=== PATIENT | male | born 1985 | race Caucasian/White ===

== ENCOUNTER 2017-12-05 17:04 | Emergency (ER) | payer BC ==
[~2017-12-05 17:04] MED LIST: Rabies Immune Globulin 10 ML* 150 UNIT/ML VIAL ONE
[2017-12-05 17:34] VITALS: BP 118/86
--- NOTE | 2017-12-05 19:26 | UC ---
Bite Injury/Animal HPI - HPI Summary HPI Summary: 32 yo male presents with bat exposure. He tells me that on 11/24 he and his family noticed his cat chasing a bat around the house. Unsure when it got into the house overnight. Pt does not think he was bitten - History of Current Complaint Chief Complaint: UCGeneralIllness Stated Complaint: RABIES EXPOSURE Time Seen by Provider: 12/05/17 19:23 Hx Obtained From: Patient Pain Intensity: 0 Onset/Duration: Sudden Onset - Allergies/Home Medications Allergies/Adverse Reactions: Allergies Allergy/AdvReac Type Severity Reaction Status Date / Time No Known Allergies Allergy Verified 12/05/17 17:34 Home Medications: Home Medications NK [No Home Medications Reported] 12/05/17 [History Confirmed 12/05/17] PMH/Surg Hx/FS Hx/Imm Hx - Additional Past Medical History Additional PMH: None - Surgical History Surgical History: Yes Surgery Procedure, Year, and Place: rectus abdominus repair - Family History Known Family History: Positive: None - Social History Occupation: Employed Full-time Lives: With Family Alcohol Use: Weekly Substance Use Type: None Smoking Status (MU): Never Smoked Tobacco Review of Systems Constitutional: Negative Skin: Negative Respiratory: Negative Cardiovascular: Negative Musculoskeletal: Negative Neurological: Negative Psychological: Negative All Other Systems Reviewed And Are Negative: Yes Physical Exam - Summary Physical Exam Summary: GENERAL: NAD. WDWN. No pain distress. SKIN: No puncture wounds or appreciated bite sites. No streaking, bleeding, or drainage. NECK: Supple. Nontender. No lymphadenopathy. CHEST: No accessory muscle use. Breathing comfortably and in no distress. CV: Pulses intact. Cap refill <2seconds NEURO: Alert. CN II-XII grossly intact. PSYCH: Age appropriate behavior. Triage Information Reviewed: Yes Vital Signs: Initial Vital Signs Temp 98.6 F 12/05/17 17:29 Pulse 63 12/05/17 17:29 Resp 16 12/05/17 17:29 BP 118/86 12/05/17 17:29 Pulse Ox 100 12/05/17 17:29 Vital Signs Reviewed: Yes Bite Injury Course/Dx - Course Course Of Treatment: tdap updated. RIG and rabies vaccine given according to guidelines. All questions answered. - Differential Dx/Diagnosis Provider Diagnoses: Bat exposure Discharge - Sign-Out/Discharge Documenting (check all that apply): Patient Departure - Discharge Plan Condition: Stable Disposition: HOME Patient Education Materials: Rabies Immune Globulin (By injection), Rabies (ED) , Rabies Vaccine (ED) Referrals: No Primary Care Phys,NOPCP [Primary Care Provider] - Additional Instructions: If you develop a fever, shortness of breath, chest pain, new or worsening symptoms - please call your PCP or go to the ED. - Billing Disposition and Condition Condition: STABLE Disposition: Home
[2017-12-05] MEDS ORDERED: Rabies VIRUS VACCINE (Imovax)* 2.5 UNIT/ML 1 ML IM ONE (19:31)
[2017-12-05] MEDS ORDERED: Rabies Immune Globulin 10 ML* 150 UNIT/ML VIAL (KEDRAB) IM ONE (19:31)
[2017-12-05] MEDS ORDERED: Tetan/Diph/Pertus SYR(Tdap)* 0.5 ML SYR(BOOSTRIX) use SYR IM ONE (19:31)
[2017-12-05] MEDS ORDERED: Rabies Immune Globulin 10 ML* 150 UNIT/ML VIAL ONE (19:50)
== END 2017-12-05 20:35 | disposition home or self-care (01) ==
LOC: UCEAST 17:04
DX: Z20.3 Contact with and (suspected) exposure to rabies (principal); Z29.14 Encounter for prophylactic rabies immune globulin; Z23 Encounter for immunization
CPT/HCPCS: 90375; 90471; 90472; 90715; 96372; 99201; G0463